=== PATIENT | male | born 1990 | race Caucasian/White ===

== ENCOUNTER 2020-07-11 07:56 | Emergency (ER) | payer SELFPAY ==
[~2020-07-11] VITALS: Ht 175.3 cm; Wt 84.1 kg
[~2020-07-11 07:56] MED LIST: BACTRIM DS 8001 TAB PO; MULTI VITAMINS1 TAB PO; NIZORAL CREAM15 GM TP
[2020-07-11 08:01] VITALS: TEMP 98.4
[2020-07-11] MEDS ORDERED: NORCO 325 MG-51 TAB PO (10:03)
[2020-07-11 11:03] VITALS: BP 121/89; PULSE 74
[2020-07-11] MEDS ORDERED: CRUTCHES MC (11:21)
== END 2020-07-11 11:30 | disposition home or self-care (01) ==
LOC: COL.ER 07:56
DX: S92.002A Unspecified fracture of left calcaneus, initial encounter for closed fracture (principal); S92.001A Unspecified fracture of right calcaneus, initial encounter for closed fracture; W17.89XA Other fall from one level to another, initial encounter; Y92.89 Other specified places as the place of occurrence of the external cause
CPT/HCPCS: J1885

== ENCOUNTER → 2020-07-15 | Outpatient (CLI) | payer SELFPAY ==
[~2020-07-15] MED LIST changes: +CRUTCHES MC; +NORCO 325 MG-51 TAB PO
== END ==
LOC: COL.RAD 10:26
DX: S92.045A Nondisplaced other fracture of tuberosity of left calcaneus, initial encounter for closed fracture (principal)